=== PATIENT | female | born 1970 | race African-American/Black ===

== ENCOUNTER 2019-07-25 08:53 | Emergency (ER) | payer OTHER, SELFPAY ==
[2019-07-25 08:54] VITALS: BP 114/73; PULSE 81; RESP 16; TEMP 36.1; O2SAT 100; BMI 23.1
--- NOTE | 2019-07-25 09:15 | ED.VIS.GEN ---
History of Present Illness Chief Complaint: Foreign Body Onset: Yesterday Current Severity: Mild Maximum Severity: Mild Narrative: Presents with foreign body sensation of the right ear. She thinks a piece of her hearing got into her ear canal since she feels some strange feelings. She has no fever chills, she has slight congestion. She has no shortness of breath Past Medical History - Allergies and Home Meds Allergies/Adverse Reactions: Allergies MYCINS Allergy (Uncoded 07/25/19 08:53) Vomiting Primary Care Physician: John Alarcon,Out of [Primary Care Provider] - Past Medical History: None Smoking Status: Never smoker Review of Systems General: Denies: Fever Eyes: Denies: Visual changes - bilaterally ENT: Reports: Right ear pain Cardiovascular: Denies: Chest pain Respiratory: Denies: Dyspnea, Cough Gastrointestinal: Denies: Abdominal pain, Nausea Neurological: Denies: Headache, Weakness Hematologic: Denies: Easy bruising Physical Exam Vital Signs/Narrative: Vital Signs Temp Pulse Resp BP Pulse Ox 07/25/19 08:54 97.0 F L 81 16 114/73 100 General: Well nourished, Well developed ENT: - - Upper airway congestion rhinorrhea and postnasal drip. There is some bulging of the right TM. Ear canal has some slight erythema but there is no foreign body. Cardiovascular: Regular rate Respiratory: No distress Abdomen: Soft Skin: Normal color Neurological: Normal Strength Diagnostic/Tx/Re-eval - Medical Decision Making Patient is reassured. She likely has an upper respiratory infection will be treated symptomatically, she does not meet criteria for antibiotics. ED Disposition - Plan for ED Patient: Diagnosis: Upper respiratory infection Instructions: URI, Viral, No Abx (Adult) Referrals: John Alarcon,Out of [Primary Care Provider] - 3-5 Days
[2019-07-25 09:31] VITALS: BP 114/73; PULSE 81; RESP 18
--- NOTE | 2019-07-25 09:32 | NURSING ---
Addendum entered by Adrianna Orr 07/25/19 09:32: PT CANELO MONDRAGON Original Note: R EAR IRRIGATED. NOTHING OUT
== END 2019-07-25 09:33 | disposition home or self-care (01) ==
PROVIDERS: Emergency Provider Emergency Medicine
DX: J06.9 Acute upper respiratory infection, unspecified (principal)
CPT/HCPCS: 99282